=== PATIENT | male | born 1960 | race Caucasian/White ===

== ENCOUNTER 2018-06-21 08:01 | Outpatient (CLI) | payer BC ==
--- NOTE | 2018-06-21 10:01 | ULT ---
GALLBLADDER ULTRASOUND: HISTORY: Elevated liver function tests. FINDINGS: Real-time imaging of the right upper quadrant shows a normal-appearing gallbladder. The common duct is 4 mm. The technologist describes a negative ultrasound Rodriguez's sign. The liver measures 19 cm in length and is of diffuse increased echogenicity. Right kidney is normal in size. It is not obstructed. There is a 3.3 cm cyst present in the more in ferior pole region. Pancreas is partially obscured. IMPRESSION: Fatty changes of the liver which is upper limits of normal in size. POS: [facility]
== END 2018-06-21 08:02 | disposition home or self-care (01) ==
LOC: SCSULT 08:01
PROVIDERS: ATTEND Internal Medicine
DX: R74.0 Nonspecific elevation of levels of transaminase and lactic acid dehydrogenase [LDH] (principal); K76.0 Fatty (change of) liver, not elsewhere classified
CPT/HCPCS: 76705